=== PATIENT | female | born 1980 | race Caucasian/White ===

== ENCOUNTER 2017-05-22 14:52 | Emergency (ER) | payer MEDICAID ==
--- NOTE | 2017-05-22 15:00 | EDPHY ---
H & P Stated Complaint: ?aleergic reaction to meds/rash yesterday/today lip swelling/ Time Seen by Provider: 05/22/17 15:00 - Personal History LMP (Females 10-55): 15-21 Days Ago Current Tetanus/Diphtheria Vaccine: Yes - Medical/Surgical History Hx Asthma: No Hx Chronic Respiratory Disease: No Hx Diabetes: No Hx Cardiac Disease: No Hx Renal Disease: No Hx Cirrhosis: No Hx Alcoholism: No Hx HIV/AIDS: No Hx Splenectomy or Spleen Trauma: No Other PMH: pots/lyme disease/babesia infection - Social History Smoking Status: Never smoked Constitutional: Initial Vital Signs Temperature (C) 36.8 C 05/22/17 14:55 Heart Rate 139 H 05/22/17 14:55 Respiratory Rate 22 H 05/22/17 14:55 Blood Pressure 133/99 H 05/22/17 14:55 O2 Sat (%) 98 05/22/17 14:55 O2 Delivery Mode Room Air Allergies/Adverse Reactions: codeine Allergy (Verified 05/22/17 14:53) Home Medications: Medication Instructions Recorded DAPSONE 05/22/17 LEUCOVORIN CALCIUM 05/22/17 MINOCYCLINE HCL 05/22/17 Malarone 250/100 mg Tab (*) 05/22/17 Medical Decision Making ED Course/Re-evaluation: CHIEF COMPLAINT: HISTORY OF PRESENT ILLNESS: must have 4 elements: Location, Quality, Severity , Duration, Timing, Context, Modifying Factors, Associated Signs and Symptoms REVIEW OF SYSTEMS: A 10 point review of systems was performed and is negative with the exception of the elements mentioned in the history of present illness. PHYSICAL EXAM: HR, BP, O2 Sat, RR. Temp noted General Appearance: Alert, well hydrated, appropriate, and non-toxic appearing. Head: Atraumatic without scalp tenderness or obvious injury Eyes: Pupils equal, round, reactive to light and accommodation, EOMI, no trauma , no injection. Ears: Clear bilaterally, no perforation, normal landmarks Nose: Atraumatic, no rhinorrhea, clear. Throat: There is no erythema or exudates, no lesions, normal tonsils, mucus membranes moist. Neck: Supple, 2+ carotid upstroke, nontender, no lymphadenopathy. Respiratory: No retractions, no distress, no wheezes, and no accessory muscle use. Lungs are clear to auscultation bilaterally. Cardiovascular: Regular rate and rhythm, no murmurs, rubs, or gallops. Bilateral carotid, radial, dorsalis pedis, and posterior tibial pulses intact. Good capillary refill all extremities. Gastrointestinal: Abdomen is soft, nontender, non-distended, no masses, no rebound, no guarding, no peritoneal signs. Musculoskeletal: Normal active ROM of all extremities, atraumatic. Neurological: Alert, appropriate, and interactive. The patient has normal DTRs and non-focal cranial nerves, motor, sensory, and cerebellar exam. Skin: No rashes, good turgor, no nodules on palpation. Past medical history: Past surgical history: Family history: Social history: DIAGNOSTICS/PROCEDURES/CRITICAL CARE TIME: DIFFERENTIAL DIAGNOSIS: MEDICAL DECISION MAKING:
[2017-05-22] MEDS ORDERED: FAMOTIDINE 20 MG TAB PO ONE (15:13)
[2017-05-22] MEDS ORDERED: NS 1,000 ML IV ONE (15:13)
--- NOTE | 2017-05-22 15:16 | EDPHY ---
H & P Stated Complaint: ?aleergic reaction to meds/rash yesterday/today lip swelling/ Time Seen by Provider: 05/22/17 15:00 HPI/ROS: CHIEF COMPLAINT: Allergic reaction HISTORY OF PRESENT ILLNESS: the patient is a 36-year-old female who is being treated for chronic Lyme disease treated with dapsone who finished her course 3 days ago and states that yesterday she began to have hives on her elbows and knees. She started taking Benadryl and Zyrtec last night. She took some again 8 o'clock this morning and again around 1 o'clock this afternoon. Initially her symptoms improved however this afternoon the returned and she also noticed some swelling to her lower lip. No intraoral swelling. No difficulty breathing. No fevers. No cough. No history of asthma. REVIEW OF SYSTEMS: Constitutional: denies: chills, fever, recent illness, recent injury EENTM: the see HPIdenies: blurred vision, double vision, nose congestion Respiratory: See HPI Cardiac: denies: chest pain, irregular heart rate, lightheadedness, palpitations Gastrointestinal/Abdominal: denies: abdominal pain, diarrhea, nausea, vomiting, blood streaked stools Genitourinary: denies: dysuria, frequency, hematuria, pain Musculoskeletal: denies: joint pain, muscle pain Skin: denies: lesions, rash, jaundice, bruising Neurological: denies: headache, numbness, paresthesia, tingling, dizziness, weakness Hematologic/Lymphatic: denies: blood clots, easy bleeding, easy bruising Immunologic/allergic: denies: HIV/AIDS, transplant EXAM: GENERAL: Well-appearing, well-nourished and in no acute distress. HEAD: Atraumatic, normocephalic. EYES: Pupils equal round and reactive to light, extraocular movements intact, sclera anicteric, conjunctiva are normal. ENT: minimal edema in left lower lip. No intraoral edema.TMs normal, nares patent. Moist mucous membranes. NECK: Normal range of motion, supple without lymphadenopathy or JVD. LUNGS: Breath sounds clear to auscultation bilaterally and equal. No wheezes rales or rhonchi. HEART: Said tachycardic, Regular rate without murmurs, rubs or gallops. ABDOMEN: Soft, nontender, normoactive bowel sounds. No guarding, no rebound. No masses appreciated. BACK: No CVA tenderness, no spinal tenderness, step-offs or deformities EXTREMITIES: Normal range of motion, no pitting or edema. No clubbing or cyanosis. NEUROLOGICAL: Cranial nerves II through XII grossly intact. Normal speech, normal gait. 5/5 strength, normal movement in all extremities, normal sensation PSYCH: Normal mood, normal affect. SKIN: no hives, Warm, dry, normal turgor, no visible rashes or lesions. Source: Patient Exam Limitations: No limitations - Personal History LMP (Females 10-55): 15-21 Days Ago Current Tetanus/Diphtheria Vaccine: Yes - Medical/Surgical History Hx Asthma: No Hx Chronic Respiratory Disease: No Hx Diabetes: No Hx Cardiac Disease: No Hx Renal Disease: No Hx Cirrhosis: No Hx Alcoholism: No Hx HIV/AIDS: No Hx Splenectomy or Spleen Trauma: No Other PMH: pots/lyme disease/babesia infection - Family History Significant Family History: No pertinent family hx - Social History Smoking Status: Never smoked Alcohol Use: None Drug Use: None Constitutional: Initial Vital Signs Temperature (C) 36.8 C 05/22/17 14:55 Heart Rate 139 H 05/22/17 14:55 Respiratory Rate 22 H 05/22/17 14:55 Blood Pressure 133/99 H 05/22/17 14:55 O2 Sat (%) 98 05/22/17 14:55 O2 Delivery Mode Room Air Allergies/Adverse Reactions: codeine Allergy (Verified 05/22/17 14:53) azythromycin Allergy (Uncoded 05/22/17 15:40) Home Medications: Medication Instructions Recorded DAPSONE 05/22/17 LEUCOVORIN CALCIUM 05/22/17 MINOCYCLINE HCL 05/22/17 Malarone 250/100 mg Tab (*) 05/22/17 Medical Decision Making ED Course/Re-evaluation: 3:50 p.m. the patient is doing well. Her symptoms are stable. I have offered her further observation and she would like to stay here for a few more hours. She continues to decline steroids and I do not think epinephrine is indicated. 6:00 p.m. the patient feels ready to go home. Her symptoms have not resumed. We will repeat her dose of Benadryl. We have discussed continued antihistamine use for H1 H2 blockers. We discussed indications for returning. Differential Diagnosis: Partial list of the Differential diagnosis considered include but were not limited to; allergic reaction, anaphylaxis, anaphylactoid reaction and although unlikely based on the history and physical exam, I also considered anxiety, cellulitis, infection, sepsis. I discussed these differential diagnoses and the plan with the patient as well as the usual and expected course. The patient understands that the diagnosis is provisional and that in medicine we are not always correct and that further workup is often warranted. Usual and customary warnings were given. All of the patient's questions were answered. The patient was instructed to return to the emergency department should the symptoms at all worsen or return, otherwise to followup with the physician as we discussed. - Data Points Medications Given: Discontinued Medications Diphenhydramine HCl (Benadryl) 50 mg PO EDNOW ONE Stop: 05/22/17 18:09 Last Admin: 05/22/17 18:15 Dose: 50 mg Famotidine (Pepcid) 40 mg PO EDNOW ONE Stop: 05/22/17 15:14 Last Admin: 05/22/17 15:20 Dose: 40 mg Sodium Chloride (Ns) 1,000 mls @ 0 mls/hr IV ONCE ONE; Wide Open PRN Reason: Protocol Stop: 05/22/17 15:14 Last Admin: 05/22/17 15:22 Dose: 1,000 mls Departure - Departure Disposition: Home, Routine, Self-Care Clinical Impression: Allergic reaction Qualifiers: Encounter type: initial encounter Qualified Code(s): T78.40XA - Allergy, unspecified, initial encounter Condition: Fair Instructions: Allergies (ED) Referrals: Patient,NotPresent [Primary Care Provider] - As per Instructions Marzena Dalton MD [place] [place] - As per Instructions
[2017-05-22] MEDS ORDERED: diphenhydrAMINE 25 MG CAP PO ONE (18:08)
[2017-05-22 18:27] VITALS: BP 111/64; PULSE 79; RESP 20; TEMP 98.2; O2SAT 97
== END 2017-05-22 18:27 | disposition home or self-care (01) ==
DX: T78.40XA Allergy, unspecified, initial encounter (principal); E86.9 Volume depletion, unspecified